=== PATIENT | male | born 1980 | race Caucasian/White ===

== ENCOUNTER 2019-01-27 20:39 | Inpatient (IN) ==
[2019-01-27] MEDS ORDERED: ACETAMINOPHEN 1,000 MG/100 ML VIAL IV STA (21:20)
[2019-01-27 21:27] LABS: Basophils # (auto) 0.08 K/uL (0-0.2); Basophils % (auto) 0.6 %; Eosinophils % (auto) 2.2 %; Hematocrit (blood only) 42.5 % (42-52); Hemoglobin 14.8 g/dL (14.0-18.0); Immature Granulocytes # (auto) 0.17 K/uL (0.00-0.02); Immature Granulocytes % (auto) 1.3 %; Lymphocytes # (auto) 3.81 K/uL (1.2-3.4); Lymphocytes % (auto) 28.5 %; Mean Corpuscular Hgb Conc 34.8 g/dL (32-36); Mean Corpuscular Volume 88.7 fL (80-100); Mean Platelet Volume 9.7 fL (7.4-10.4); Monocytes # (auto) 1.04 K/uL (0.11-0.59); Monocytes % (auto) 7.8 %; Neutrophils # (auto) 7.98 K/uL (1.4-6.5); Neutrophils % (auto) 59.6 %; Platelet Count 298 K/uL (130-400); RDW Coefficient of Variation 12.9 % (11.5-14.5); RDW Standard Deviation 42.2 fL (36.4-46.3); Red Blood Count 4.79 M/uL (4.7-6.1); White Blood Count 13.38 K/uL (4.8-10.8)
[2019-01-27] MEDS: SODIUM CHLORIDE 0.9% 1000ML 1,000 ML IV SCH ×2 (21:37→23:52)
[2019-01-27] MEDS ORDERED: PROCHLORPERAZINE 2 ML IV ONE (21:44)
[2019-01-27] MEDS ORDERED: FAMOTIDINE 20MG/5ML IV PUSH IV STA (21:44)
[2019-01-27] MEDS ORDERED: MoRPHine SULFATE 10 MG/ML CARP/VIAL IV STA ×2 (21:44→23:12)
[2019-01-27 21:54] LABS: Albumin Level 3.9 gm/dl (3.4-5.0); BUN Creatinine Ratio 19.1 (10-20); Calcium 9.3 mg/dl (8.5-10.1); Creatinine Clr Calc Pharmacy 140.8 ml/min; Est GFR (African American) 117.9; Est GFR (Non-African American) 101.7; Potassium 4.2 mmol/L (3.5-5.1)
[2019-01-27 21:58] LABS: Albumin Globulin Ratio 1.3 (0.9-2); Bilirubin,Total 0.3 mg/dl (0.2-1); Globulin 3.1 gm/dl (2.5-4.0)
--- NOTE | 2019-01-27 22:39 | Ultrasound Report ---
ULTRASOUND RIGHT UPPER QUADRANT ABDOMEN CLINICAL HISTORY: Right upper quadrant abdominal pain. COMPARISON STUDY: No priors. TECHNIQUE: Real-time, grayscale, and color flow sonography of the right upper quadrant of the abdomen was performed. Images are reviewed in the transverse and longitudinal planes. FINDINGS: Liver: The liver is top normal in size and demonstrates heterogeneously increased echotexture consist ent with hepatic steatosis. Fatty sparing is seen adjacent to gallbladder fossa. There is no intrahep atic biliary ductal dilatation. The main portal vein is patent. Gallbladder: There are shadowing calcified gallstones. There is no gallbladder wall thickening or per icholecystic fluid. A sonographic Parker's sign is reportedly absent. The common bile duct measures u p to 0.5 cm in diameter. Pancreas: Not well visualized due to overlying bowel gas. Right kidney: Survey images of the right kidney demonstrate normal size and echotexture. There is no hydronephrosis. Ascites: None. IMPRESSION: 1. Cholelithiasis without definitive sonographic evidence of acute cholecystitis. If there is strong clinical concern for acute cholecystitis consider hepatobiliary scan for further assessment. 2. Hepatic steatosis. Electronically signed by: Robel Rivera M.D. 01/27/2019 10:37 PM
[2019-01-27] MEDS ORDERED: cefTRIAXone SODIUM 2,000 MG in DEXTROSE 5% 50 ML IV STA (23:07)
[2019-01-27] MEDS ORDERED: SODIUM CHLORIDE 0.9% 1000ML 1,000 ML IV STA (23:12)
[2019-01-27] MEDS ORDERED: metroNIDAZOLE 500 MG/100 ML BAG IV STA (23:12)
--- NOTE | 2019-01-28 00:17 | Emergency Department Note ---
Entered by Dario Rubio acting as a scribe for Johnny Hall MD History of Present Illness General Chief complaint: Abdominal Pain Stated complaint: R SIDE STABBING PAIN Time Seen by Provider: 01/27/19 21:20 Source: patient History of Present Illness Provider complaint: Abdominal pain Onset (ago): hour(s) (Today) Location: abdomen and right (Upper) Radiation: non-radiation Pain Consistency: + constant Maximum Pain Intensity: 10 Current Pain Intensity: 10 Relieved By: + none Exacerbated By: + eating Associated symptoms: + nausea/vomiting and + shortness of breath The patient is a 38 year old male who presents to the Emergency Room with complaints of constant right upper quadrant abdominal pain and right side pain that started this afternoon. The patient rates the pain as a 10/10 and states it became a lot worse after eating pizza for dinner tonight. He also is nauseous and has vomited 3-4 times since his symptoms became worse. The patient also notes the pain is so severe that he feels short of breath. The patient has never had pain in this area before and he still has his gallbladder. Home Medications Home Medications Medication Instructions Recorded Confirmed Type multivitamin 1 tab PO DAILY 01/27/19 01/27/19 History Allergies Allergy/AdvReac Type Severity Reaction Status Date / Time No Known Allergies Allergy Verified 01/27/19 21:54 Past Med/Surg History Medical History Lumbar disc disease (Chronic) Family History Other No pertinent family history in first degree relatives Social History Feels Safe at Home: Yes Smoking Status: Never smoker Review of Systems See HPI for pertinent positives & negatives. and A total of 10 systems reviewed and were otherwise negative Physical Exam Vital Signs Vital Signs - 24 hr 01/27/19 20:44 01/27/19 22:38 Temperature 36.7 C Temperature Source Oral Sepsis Recent Fever Within 48 Hours No Sepsis Action Taken by Nursing No Action Required Pulse Rate 92 H Pulse Rate [Finger] 64 Respiratory Rate 18 20 Respiratory Effort / Characteristics Non-Labored Spontaneous Respiratory Depth Normal Blood Pressure 197/70 H Blood Pressure [Right Arm] 157/89 H Blood Pressure Mean 112 Blood Pressure Mean [Right Arm] 111 Pulse Oximetry 99 95 Oxygen Delivery Method Room Air Room Air GENERAL: Awake, alert, uncomfortable-appearing, in no distress HENT: Normocephalic, atraumatic. Oropharynx with dry mucous membranes and otherwise unremarkable. EYES: Normal conjunctiva. Sclera non-icteric. NECK: Supple. No nuchal rigidity. FROM. No JVD. RESPIRATORY: Clear to auscultation. CARDIAC: Regular rate, normal rhythm. Extremities warm and well perfused. Pulses equal. ABDOMEN: Soft, non-distended. Mild epigastric and RUQ ttp. Equivocal Parker's sign. No rebound or guarding. No masses. RECTAL: Deferred. MUSCULOSKELETAL: Chest examination reveals no tenderness. The back is symmetrical on inspection without obvious abnormality. There is no CVA tenderne ss to palpation. No joint edema. LOWER EXTREMITIES: Calves are equal size bilaterally and non-tender. No edema. No discoloration. NEURO: Normal sensorium. No sensory or motor deficits noted. SKIN: No rash or jaundice noted. Course 2141: The patient was evaluated in room B11, and a complete history and physical examination were performed. I also performed a bedside ultrasound of his right upper quadrant. 2244: I reevaluated the patient and he is still uncomfortable. 2310: I spoke to Dr. Salvatore Davis about the patient's case and he is going to accept him for further evaluation. Consultations Consultation #1: I spoke to Dr. Salvatore Davis about the patient's case and he is going to accept him for further evaluation. Time: 23:10 Administered Medications Discontinued Medications Famotidine (Pepcid 20mg Iv Push) 20 mg IV ONE STA Stop: 01/27/19 21:45 Last Admin: 01/27/19 22:02 Dose: 20 mg Documented by: [id number] Acetaminophen (Ofirmev) 1,000 mg in 100 mls @ 400 mls/hr IV NOW STA Stop: 01/27/19 21:34 Last Infusion: 01/27/19 23:22 Dose: 0 mls/hr Documented by: [id number] Admin: 01/27/19 21:37 Dose: 400 mls/hr Documented by: [id number] Sodium Chloride (Nss 1000ml) 1,000 mls @ 999 mls/hr IV .Q1H1M MILLI Stop: 01/27/19 23:30 Last Admin: 01/27/19 23:52 Dose: 999 mls/hr Documented by: [id number] Infusion: 01/27/19 22:38 Dose: 999 mls/hr Documented by: [id number] Admin: 01/27/19 21:37 Dose: 999 mls/hr Documented by: [id number] Prochlorperazine (Compazine) 2 mls @ 1 mls/min IV ONE ONE Stop: 01/27/19 21:45 Last Admin: 01/27/19 22:01 Dose: 1 mls/min Documented by: [id number] Metronidazole (Flagyl) 500 mg in 100 mls @ 100 mls/hr IV NOW STA Stop: 01/28/19 00:11 Last Admin: 01/27/19 23:28 Dose: 100 mls/hr Documented by: [id number] Morphine Sulfate (Morphine Sulfate) 10 mg IV NOW STA Stop: 01/27/19 21:45 Last Admin: 01/27/19 22:02 Dose: 10 mg Documented by: [id number] Morphine Sulfate (Morphine Sulfate) 12 mg IV NOW STA Stop: 01/27/19 23:13 Last Admin: 01/27/19 23:27 Dose: 12 mg Documented by: [id number] Medical Decision Making Differential Diagnosis Differential diagnoses includes but is not limited to gastritis, peptic ulcer disease, GERD, gallbladder disease, pancreatitis, small bowel obstruction, acute coronary syndrome, pericarditis, ischemic bowel, irritable bowel disease, ir ritable bowel syndrome, appendicitis, diverticulitis, malignancy, hernia, urinary tract infection, torsion, perforation, trauma, infectious. Medical Records Attestation: I reviewed the patient's medical records. Home Medications Current Medication List: was personally reviewed by me Laboratory Data Attestation: I reviewed the patient's lab results. Result diagrams: 01/27/19 21:07 01/27/19 21:07 Lab Results 01/27/19 01/27/19 Range/Units 21: 21:07 WBC 13.38 H (4.8-10.8) K/uL RBC 4.79 (4.7-6.1) M/uL Hgb 14.8 (14.0-18.0) g/dL Hct 42.5 (42-52) % MCV 88.7 (80-100) fL MCH 30.9 (25-34) pg MCHC 34.8 (32-36) g/dL RDW Std Deviation 42.2 (36.4-46.3) fL RDW Coeff of Amos 12.9 (11.5-14.5) % Plt Count 298 (130-400) K/uL MPV 9.7 (7.4-10.4) fL Immature Gran % (Auto) 1.3 % Neut % (Auto) 59.6 % Lymph % (Auto) 28.5 % [place] % (Auto) 7.8 % Eos % (Auto) 2.2 % Baso % (Auto) 0.6 % Immature Gran # (Auto) 0.17 H (0.00-0.02) K/uL Neut # (Auto) 7.98 H (1.4-6.5) K/uL Lymph # (Auto) 3.81 H (1.2-3.4) K/uL [place] # (Auto) 1.04 H (0.11-0.59) K/uL Eos # (Auto) 0.30 (0-0.5) K/uL Baso # (Auto) 0.08 (0-0.2) K/uL Sodium 142 (136-145) mmol/L Potassium 4.2 (3.5-5.1) mmol/L Chloride 108 H (98-107) mmol/L Carbon Dioxide 26 (21-32) mmol/L Anion Gap 8.0 (3-11) BUN 18 (7-18) mg/dl Creatinine 0.94 (0.6-1.4) mg/dl Est Cr Clr Drug Dosing 140.8 ml/min Est GFR ( Amer) 117.9 Est GFR (Non-Af Amer) 101.7 BUN/Creatinine Ratio 19.1 (10-20) Glucose 118 H (70-99) mg/dl Calcium 9.3 (8.5-10.1) mg/dl Total Bilirubin 0.3 (0.2-1) mg/dl AST 24 (15-37) U/L ALT 47 (12-78) U/L Alkaline Phosphatase 87 (45-117) U/L Total Protein 7.0 (6.4-8.2) gm/dl Albumin 3.9 (3.4-5.0) gm/dl Globulin 3.1 (2.5-4.0) gm/dl Albumin/Globulin Ratio 1.3 (0.9-2) Lipase 184 (73-393) U/L Imaging Data Radiologist's Impression: Radiology results as stated below per my review and the radiologist's interpretation: ULTRASOUND RIGHT UPPER QUADRANT ABDOMEN CLINICAL HISTORY: Right upper quadrant abdominal pain. COMPARISON STUDY: No priors. TECHNIQUE: Real-time, grayscale, and color flow sonography of the right upper quadrant of the abdomen was performed. Images are reviewed in the transverse and longitudinal planes. FINDINGS: Liver: The liver is top normal in size and demonstrates heterogeneously increased echotexture consistent with hepatic steatosis. Fatty sparing is seen adjacent to gallbladder fossa. There is no intrahepatic biliary ductal dilatation. The main portal vein is patent. Gallbladder: There are shadowing calcified gallstones. There is no gallbladder wall thickening or pericholecystic fluid. A sonographic Parker's sign is reportedly absent. The common bile duct measures up to 0.5 cm in diameter. Pancreas: Not well visualized due to overlying bowel gas. Right kidney: Survey images of the right kidney demonstrate normal size and echotexture. There is no hydronephrosis. Ascites: None. IMPRESSION: 1. Cholelithiasis without definitive sonographic evidence of acute cholecystitis. If there is strong clinical concern for acute cholecystitis consider hepatobiliary scan for further assessment. 2. Hepatic steatosis. Electronically signed by: Robel Rivera M.D. 01/27/2019 10:37 PM Blood Pressure Blood Pressure Findings: Elevated blood pressure Blood Pressure Disposition: further management by hospitalist DONALDO Narrative The patient is a pleasant 38-year-old gentleman who presents emergency department with acute onset right upper quadrant pain with associated nausea and vomiting per hpi. On arrival patient is uncomfortable but no acute distress, afebrile stable vital signs. Patient appears clinically dry. On exam he exhibits mild epigastric and RUQ ttp. Equivocal Parker's sign. WBC 3.3 with left shift and neutrophil predominance. Otherwise, chemistry without acidosis. LFTs unremarkable. Formal gallbladder ultrasound demonstrates cholelithiasis without evidence of cholecystitis and CBD of 0.5cm. Patient reevaluated and feeling some improvement after IV fluids, APAP, morphine. Though still uncomfortable appearing. The patient's discomfort with leukocytosis reasonable to admit the patient for further evaluation to exclude cholecystitis with HIDA scan. Will treat with ceftriaxone and Flagyl for now. Case discussed with Dr. Chase, [facility] hospitalist, who will evaluated the patient for admission and possible surgery/GI consultation. Impression & Plan Symptomatic cholelithiasis Discharge Plan Visit Data Chief Complaint: Abdominal Pain Stated Complaint: R SIDE STABBING PAIN ED Provider: Johnny Hall Discharge Problem: Symptomatic cholelithiasis Patient Disposition: Being Evaluated by Hospitalist Forms Stand Alone Forms: Call Back Authorization, My [facility] Prescriptions Prescriptions: No Action multivitamin Tablet,Chewable 1 tab PO DAILY RF: 0 Referrals Referrals: Osiel Corral MD [Primary Care Provider] - The scribe's documentation has been prepared under my direction and personally reviewed by me in its entirety. I confirm that the note above accurately reflects all work, treatment, procedures, and medical decision making performed by me.
[2019-01-28] MEDS ORDERED: HYDROmorphone INJ 0.5 MG/0.5 ML SYR IV PRN (01:09)
[2019-01-28] MEDS ORDERED: ONDANSETRON INJ 2 MG/ML 2 ML VIAL IV PRN ×2 (01:09→10:13)
[2019-01-28] MEDS ORDERED: ACETAMINOPHEN 325 MG TAB PO PRN (01:09)
[2019-01-28] MEDS: D5W AND NSS 1,000 ML IV SCH ×3 (01:30→16:47)
--- NOTE | 2019-01-28 01:43 | History and Physical Report ---
DATE OF ADMISSION: 01/28/2019 CHIEF COMPLAINT: Right upper quadrant abdominal pain. 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 He ate pizza. Initially thought of heartburn, but pain did not go away was very severe in nature, no radiation, does have some nausea, vomiting, no fever, but felt chills. In the ER ultrasound showing gallstones LAbs are fine. After pain medication, pain now has come down. Nausea is improved. Denies any headache. No blurred vision. No sore throat, no chest pain, no shortness of breath, no cough. Normal bowel and bladder movements. No swelling. Currently resting comfortably and hemodynamically stable. ALLERGIES: No known drug allergies. PAST MEDICAL HISTORY: As mentioned above. PAST SURGICAL HISTORY: None. MEDICATIONS: None. FAMILY HISTORY: Father has diabetes. Paternal grandfather has diabetes and heart disorder. SOCIAL HISTORY: No smoking, no alcohol, no drug use. . REVIEW OF SYMPTOMS: As per HPI. Rest of the review of symptoms are negative. PHYSICAL EXAMINATION: GENERAL: The patient is morbidly obese, not in acute distress. VITAL SIGNS: Temperature 36.7, pulse 64, respiratory rate 20, blood pressure 157/89, oxygen 96% on room air. HEENT: No pallor, no icterus. Pupils equal, round, and reactive to light. NECK: No JVD. No neck masses, no carotid bruit. CARDIOVASCULAR: S1, S2 heard. Regular rate and rhythm, no murmur, no gallop. RESPIRATORY SYSTEM: Normal AP diameter. No accessory muscle use. No wheezing, no crackles. ABDOMEN: Soft, bowel sounds present. Right upper quadrant tenderness present. Mild guarding present. No rigidity seen. No distention. CENTRAL NERVOUS SYSTEM: Cranial nerves II-XII grossly intact. Nonfocal. EXTREMITIES: No edema, no erythema. LABS: WBC 13.3, hemoglobin 14.8, hematocrit 42.5, platelets 298. Sodium 142, potassium 4.2, chloride 108, bicarbonate 26, BUN 18, creatinine 0.9, serum glucose 118, calcium 9.3, total bilirubin 0.3, AST 24, ALT 18, alkaline phosphatase is 64, lipase 184. Gallbladder ultrasound shows cholelithiasis without definitive sonographic evidence of acute processes. There is a strong clinical concern for acute cholecystitis,recommend HIDA scan, hepatic steatosis. ASSESSMENT AND PLAN: This 38-year-old male who presents with right upper quadrant pain found to be in mild distress. 1. Right upper quadrant abdominal pain after eating pizza. Gallstones on ultrasound. Mostly biliary colic. We will get a HIDA scan to rule out any cholecystitis. We will keep him n.p.o., IV fluids, IV antiemetics p.r.n., IV pain meds p.r.n. and empiric IV Unasyn and consult surgery in a.m. for further recommendations. 2. Deep venous thrombosis prophylaxis, sequential compression devices for now. 3. Disposition: Admit to medical floor. Expect to discharge home and follow with his family doctor. Level 1 full code. MTDD
[2019-01-28] MEDS: AMPICILLIN/SULBACTAM SOD 1,500 MG in 0.9 % SODIUM CHLORIDE 100 ML IV SCH ×4 (03:49→21:34)
[2019-01-28 05:33] LABS: Basophils # (auto) 0.02 K/uL (0-0.2); Basophils % (auto) 0.2 %; Eosinophils # (auto) 0.12 K/uL (0-0.5); Eosinophils % (auto) 0.9 %; Hematocrit (blood only) 37.4 % (42-52); Hemoglobin 12.5 g/dL (14.0-18.0); Immature Granulocytes # (auto) 0.09 K/uL (0.00-0.02); Immature Granulocytes % (auto) 0.7 %; Lymphocytes # (auto) 2.17 K/uL (1.2-3.4); Lymphocytes % (auto) 16.6 %; Mean Corpuscular Hgb Conc 33.4 g/dL (32-36); Mean Corpuscular Volume 90.3 fL (80-100); Mean Platelet Volume 9.4 fL (7.4-10.4); Monocytes % (auto) 8.4 %; Neutrophils % (auto) 73.2 %; Platelet Count 222 K/uL (130-400); RDW Coefficient of Variation 13.1 % (11.5-14.5); RDW Standard Deviation 43.3 fL (36.4-46.3); Red Blood Count 4.14 M/uL (4.7-6.1)
[2019-01-28 06:02] LABS: BUN Creatinine Ratio 17.4 (10-20); Calcium 8.3 mg/dl (8.5-10.1); Creatinine Clr Calc Pharmacy 151.4 ml/min; Est GFR (Non-African American) 108.7; Potassium 4.1 mmol/L (3.5-5.1)
[2019-01-28 06:21] LABS: Alanine Aminotransferase 40 U/L (12-78); Albumin Level 3.2 gm/dl (3.4-5.0); Alkaline Phosphatase 64 U/L (45-117); Aspartate Aminotransferase 18 U/L (15-37); Bilirubin Direct < 0.1 mg/dl (0-0.2); Bilirubin,Total 0.3 mg/dl (0.2-1); Magnesium 1.9 mg/dl (1.8-2.4)
[2019-01-28 07:02] LABS: Appearance Urine Clear (Clear); Bilirubin Urine Negative (Negative); Blood Urine Negative (Negative); Color Urine Yellow; Glucose Urine UA Negative (Negative); Ketones Urine Negative (Negative); Leukocyte Esterase Urine Negative (Negative); Nitrite Urine Negative (Negative); Protein Urine Negative (Negative); Specific Gravity Urine 1.036 (1.000-1.030); Urobilinogen Urine Negative (Negative)
[2019-01-28] MEDS ORDERED: MIDAZOLAM HCL 1 MG/ML 2ML VIAL ONE (09:33)
[2019-01-28] MEDS ORDERED: GLYCOPYRROLATE 0.2 MG/ML VIAL ONE (09:33)
[2019-01-28] MEDS ORDERED: LIDOCAINE HCL 2% 2 ML VIAL/AMP(20MG/ML) INFIL ONE (09:33)
[2019-01-28] MEDS ORDERED: DEXAMETHASONE SOD INJ 4 MG/ML VIAL ONE (09:33)
[2019-01-28] MEDS ORDERED: PROPOFOL IV EMULSION 10 MG/ML 20 ML VIAL IV ONE ×2 (09:33→10:44)
[2019-01-28] MEDS ORDERED: ROCURONIUM BROMIDE 10 MG/ML 5 ML VIAL ONE (09:33)
[2019-01-28] MEDS ORDERED: ONDANSETRON INJ 2 MG/ML 2 ML VIAL ONE (09:33)
[2019-01-28] MEDS ORDERED: fentaNYL citrate 100 MCG/2 ML VIAL ONE (09:33)
[2019-01-28] MEDS ORDERED: NEOSTIGMINE METHYLSULFATE 5 MG/5 ML SYR ONE (09:33)
--- NOTE | 2019-01-28 09:36 | Surgery Consultation ---
Date of Consultation January 28, 2019 Assessment & Plan (1) Symptomatic cholelithiasis: pt is a 38 years old male who was admitted to hospital for RUQ pain, U?S cholelithiasis. IMP: acute cholecystitis, cholelithiasis Plan, cancel HIDA scan I recommend to do laparoscopic cholecystectomy. possible open or cholangiogram, D/W benefits, risks and alternatives of the surgery, the risks - infection, bleeding, injury CBD, bowel, , pt understood, he agrees with the surgery, I answered all questions, History of Present Illness Attending Physician: CHIEF COMPLAINT: Right upper quadrant abdominal pain. 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 He ate pizza. Initially thought of heartburn, but pain did not go away was very severe in nature, no radiation, does have some nausea, vomiting, no fever, but felt chills. In the ER ultrasound showing gallstones LAbs are fine. After pain medication, pain now has come down. Nausea is improved. Denies any headache. No blurred vision. No sore throat, no chest pain, no shortness of breath, no cough. Normal bowel and bladder movements. No swelling. Currently resting comfortably and hemodynamically stable. I saw pt and reviewed pt's H/P with pt, pt is still have RUQ pain with nausea, no vomiting, Allergies Allergy/AdvReac Type Severity Reaction Status Date / Time No Known Allergies Allergy Verified 01/27/19 21:54 Home Medications Home Medications Medication Instructions Recorded Confirmed Type multivitamin 1 tab PO DAILY 01/27/19 01/27/19 History Patient History Medical History Lumbar disc disease (Chronic) Family History Other No pertinent family history in first degree relatives Social History Preferred Language: Latvian Communication Ability: Effective Beliefs That Will Affect Care: None Current Living Situation: Significant Other Other Information That Helps Us Care for You: No Feels Safe at Home: Yes Safety Concerns: Feels Safe At This Time Smoking Status: Never smoker Do You Dip or Chew Tobacco: No Second Hand Exposure: No Hx Alcohol Use: No Hx Substance Use: No Review of Systems Constitutional: as per Subjective / HPI Ear, Nose, Mouth, Throat: as per Subjective / HPI Respiratory: as per Subjective / HPI Cardiovascular: as per Subjective / HPI Gastrointestinal: as per Subjective / HPI Genitourinary: + as per Subjective / HPI Integumentary: as per Subjective / HPI Neurologic: as per Subjective / HPI Psychiatric: as per Subjective / HPI Endocrine: as per Subjective / HPI Hematologic / Lymphatic: as per Subjective / HPI Physical Exam Constitutional: WD/WN, vitals as above Neck: trachea midline, no thyromegaly Respiratory: normal respiratory effort, lungs clear to auscultation normal respiratory effort Cardiovascular: RRR, no murmur, no edema Rate/Rhythm: regular rate and regular rhythm Heart Sounds: normal S1 and normal S2 Gastrointestinal (Abdomen): Percussion/Palpation: + abdomen tender tenderness at RUQ , no rebound pain Neurologic: patellar DTR's 2+ bilat, sensation intact Psychiatric: A+Ox3, euthymic affect Results & Data Vital Signs (Past 12 Hours) Vital Signs Temp Pulse Pulse Pulse Resp BP Pulse Ox 01/28/19 07:51 36.8 C 68 11 L 123/76 99 01/28/19 01:17 36.8 C 68 18 163/97 H 99 01/28/19 00:46 69 18 161/94 H 99 01/27/19 22:38 64 20 157/89 H 95 Laboratory Results Abnormal lab results 01/27/19 01/27/19 01/28/19 Range/Units 21:07 21:07 05:18 WBC 13.38 H 13.10 H (4.8-10.8) K/uL RBC 4.14 L (4.7-6.1) M/uL Hgb 12.5 L (14.0-18.0) g/dL Hct 37.4 L (42-52) % Immature Gran # (Auto) 0.17 H 0.09 H (0.00-0.02) K/uL Neut # (Auto) 7.98 H 9.60 H (1.4-6.5) K/uL Lymph # (Auto) 3.81 H (1.2-3.4) K/uL [place] # (Auto) 1.04 H 1.10 H (0.11-0.59) K/uL Chloride 108 H (98-107) mmol/L Glucose 118 H (70-99) mg/dl Calcium (8.5-10.1) mg/dl Total Protein (6.4-8.2) gm/dl Albumin (3.4-5.0) gm/dl Ur Specific [place] (1.000-1.030) 01/28/19 01/28/19 01/28/19 Range/Units 05:18 05:18 06:58 WBC (4.8-10.8) K/uL RBC (4.7-6.1) M/uL Hgb (14.0-18.0) g/dL Hct (42-52) % Immature Gran # (Auto) (0.00-0.02) K/uL Neut # (Auto) (1.4-6.5) K/uL Lymph # (Auto) (1.2-3.4) K/uL [place] # (Auto) (0.11-0.59) K/uL Chloride 109 H (98-107) mmol/L Glucose 122 H (70-99) mg/dl Calcium 8.3 L (8.5-10.1) mg/dl Total Protein 6.0 L (6.4-8.2) gm/dl Albumin 3.2 L (3.4-5.0) gm/dl Ur Specific [place] 1.036 H (1.000-1.030) Diagnostic Findings ULTRASOUND RIGHT UPPER QUADRANT ABDOMEN CLINICAL HISTORY: Right upper quadrant abdominal pain. COMPARISON STUDY: No priors. TECHNIQUE: Real-time, grayscale, and color flow sonography of the right upper quadrant of the abdomen was performed. Images are reviewed in the transverse and longitudinal planes. FINDINGS: Liver: The liver is top normal in size and demonstrates heterogeneously increased echotexture consistent with hepatic steatosis. Fatty sparing is seen adjacent to gallbladder fossa. There is no intrahepatic biliary ductal dilatation. The main portal vein is patent. Gallbladder: There are shadowing calcified gallstones. There is no gallbladder wall thickening or pericholecystic fluid. A sonographic Parker's sign is reportedly absent. The common bile duct measures up to 0.5 cm in diameter. Pancreas: Not well visualized due to overlying bowel gas. Right kidney: Survey images of the right kidney demonstrate normal size and echotexture. There is no hydronephrosis. Ascites: None. IMPRESSION: 1. Cholelithiasis without definitive sonographic evidence of acute cholecystitis. If there is strong clinical concern for acute cholecystitis consider hepatobiliary scan for further assessment. 2. Hepatic steatosis.
[2019-01-28] MEDS ORDERED: BACITRACIN OINT 15 GM TUBE ONE (09:41)
[2019-01-28] MEDS ORDERED: BUPIVACAINE 0.5 % 5 MG/1 ML MPF 30ML VIAL ONE (09:42)
[2019-01-28] MEDS ORDERED: LIDOCAINE HCL 1% 20 ML VIAL ONE (09:42)
[2019-01-28] MEDS ORDERED: CONRAY 60% 50 ML VIAL ONE (09:42)
--- NOTE | 2019-01-28 10:08 | History & Physical Bridge Note ---
Date of Service January 28, 2019 History & Physical Bridge Note I have examined the patient, reviewed the History & Physical and in the interval since the performance of the History & Physical I have noted the following changes of clinical significance: no changes noted
[2019-01-28] MEDS ORDERED: ePHEDrine sulfate 50 MG/ML AMP IV PRN (10:13)
[2019-01-28] MEDS ORDERED: ATROPINE SULFATE 0.1 MG/ML 10ML SYR IV PRN (10:13)
[2019-01-28] MEDS ORDERED: HYDROmorphone INJ 2 MG/ML SYR/VIAL IV PRN (10:13)
[2019-01-28] MEDS ORDERED: fentaNYL citrate 100 MCG/2 ML VIAL IV PRN (10:13)
[2019-01-28] MEDS ORDERED: PROMETHAZINE HCL 6.25 MG in SODIUM CHLORIDE 0.9% 50 ML IV PRN (10:13)
--- NOTE | 2019-01-28 10:13 | Anesthesiology Consultation ---
Date of Service January 28, 2019 Assessment & Plan (1) Encounter for pre-operative examination: Chart Review Chart Review: Acceptable Risk for Surgery and Patient NOT seen in Pre Admission Testing Consults Requested none ASA ASA2 Proposed Anesthesia Anesthesia Type: General Risk / Benefits Reviewed With: PT / POA / Parent / Guardian, Accepts Plan and Informed Consent Obtained History Surgery Operation Date: 01/28/19 08:10 Proposed Procedures p Laparoscopic Cholecystectomy - Laisha Sr MD Height/Weight Height: 5 ft 9 in Weight: 128.7 kg Allergies Allergy/AdvReac Type Severity Reaction Status Date / Time No Known Allergies Allergy Verified 01/27/19 21:54 Medications Home Medications Medication Instructions Recorded Confirmed Last Taken multivitamin 1 tab PO DAILY 01/27/19 01/27/19 Unknown Active Medications Generic Name Dose Route Start Last Admin Trade Name Freq PRN Reason Stop Dose Admin Hydromorphone HCl 0.5 mg 01/28/19 01:09 01/28/19 02:23 Dilaudid IV 02/11/19 01:08 0.5 mg Q4H PRN Administration Pain Ampicillin Sodium/Sulbactam 104 mls @ 200 mls/hr 01/28/19 04:00 01/28/19 04:23 Sodium 1,500 mg/ Sodium IV 02/07/19 03:59 Infused Chloride Q6H MILLI Infusion Protocol Dextrose/Sodium Chloride 1,000 mls @ 125 mls/hr 01/28/19 01:09 01/28/19 09:49 D5w And Nss IV 02/27/19 01:08 Infused .Q8H MILLI Infusion NPO Date Last Intake of Fluids: 01/27/19 Time Last Intake of Fluids: 20:00 Date Last Intake of Solids: 01/27/19 Time Last Intake of Solids: 18:00 Past Medical History Medical History Lumbar disc disease (Chronic) Exercise / Class Metabolic Activity II 4-5 Yardwork/Stairs/Walk up hill Past Family History Family History Other No pertinent family history in first degree relatives Past Anesthesia History No Hx of Anesthesia Complications and No Family Hx of Anesthesia Complications History of PONV No Hx of PONV and No Hx of Motion Sickness Social History Smoking Status: Never smoker Do You Dip or Chew Tobacco: No Hx Alcohol Use: No Hx Substance Use: No Physical Exam Vital Signs Last Vital Signs Temp 36.9 C 01/28/19 09:42 Pulse 88 01/28/19 09:42 Resp 18 01/28/19 09:42 BP 146/83 H 01/28/19 09:42 Pulse Ox 96 01/28/19 09:42 ENMT Mouth: no dentition abnormality Thyromental Distance: > or= 3.5 Finger Breadths Mallampati Class: II Neck normal visual inspection Respiratory normal respiratory effort Auscultation: lungs clear to auscultation bilaterally Cardiovascular Rate/Rhythm: regular rate and regular rhythm Psychiatric Orientation: alert Testing Laboratory Results 01/28/19 05:18 01/28/19 05:18 Urine Color Yellow 01/28/19 06:58 Urine Appearance Clear (Clear) 01/28/19 06:58 Urine pH 5.0 (4.5-7.5) 01/28/19 06:58 Ur Specific [place] 1.036 (1.000-1.030) H 01/28/19 06:58 Urine Protein Negative (Negative) 01/28/19 06:58 Urine Glucose (UA) Negative (Negative) 01/28/19 06:58 Urine Ketones Negative (Negative) 01/28/19 06:58 Urine Nitrite Negative (Negative) 01/28/19 06:58 Ur Leukocyte Esterase Negative (Negative) 01/28/19 06:58
[2019-01-28] MEDS ORDERED: SUCCINYLCHOLINE CHLORIDE 20 MG/ML 10 ML VIAL ONE (10:33)
--- NOTE | 2019-01-28 11:26 | Post Operative Brief Note ---
Immediate Post Op Note v1 Date of Surgery January 28, 2019 Pre & Post Diagnosis Operation Date: 01/28/19 08:10 Pre-Op Diagnosis: acute Cholecystitis, cholelithiasis Post-Op Diagnosis: same Procedure Operation Date: 01/28/19 08:10 Actual Procedures p Laparoscopic Cholecystectomy(Not Applicable) - Laisha Sr MD Surgeon Laisha Sr MD Supervisor [employer] RACHAEL Brennan Estimated Blood Loss 20 Findings Consistent with Post-Op Diagnosis acute cholecystitis Fluids 1200ml Specimens gallbladder Anesthesia Type General Complications none Disposition Accompanied Patient To Recovery: Yes Disposition: Recovery Room Overlapping Procedure I was immediately available: during the entire case.
--- NOTE | 2019-01-28 12:25 | Anesthesiology Progress Note ---
Date of Service January 28, 2019 Anesthesia Post Procedure Vital Signs Vital Signs: Temp Pulse Pulse Pulse Pulse Resp BP 01/28/19 12:20 58 L 17 01/28/19 12:10 61 19 01/28/19 12:00 60 19 01/28/19 11:52 36.0 C L 63 19 01/28/19 09:42 36.9 C 88 18 01/28/19 07:51 36.8 C 68 11 L 01/28/19 01:17 36.8 C 68 18 01/28/19 00:46 69 18 01/27/19 22:38 64 20 01/27/19 20:44 36.7 C 92 H 18 197/70 H BP Pulse Ox 01/28/19 12:20 139/97 96 01/28/19 12:10 163/63 H 98 01/28/19 12:00 101/80 98 01/28/19 11:52 101/80 98 01/28/19 09:42 146/83 H 96 01/28/19 07:51 123/76 99 01/28/19 01:17 163/97 H 99 01/28/19 00:46 161/94 H 99 01/27/19 22:38 157/89 H 95 01/27/19 20:44 99 Pain Intensity Abdomen: Pain Intensity: 3 Transfer of Care Handoff Completed per policy Notes Mental Status: alert / awake / arousable Patient Amnestic to Procedure: Yes Nausea / Vomiting: adequately controlled Pain: adequately controlled Airway Patency, RR, SpO2: stable & adequate BP & HR: stable & adequate Hydration State: stable & adequate Anesthetic Complications: no major complications apparent
[2019-01-28] MEDS ORDERED: OXYCODONE/ACETAMINOPHEN 5mg/325mg TAB PO PRN (12:45)
--- NOTE | 2019-01-28 12:53 | Hospitalist Progress Note ---
Date of Service January 28, 2019 Assessment & Plan (1) Symptomatic cholelithiasis: (2) Lumbar disc disease: (3) Obesity (BMI 30.0-34.9): s/p Shabbir Sr DC tomorrow Resume Post Op Care per Surgery Protocol Incentive Spirometry 10x per Hour Resume Relative Home Meds Where Appropriate Transition from IV to PO Pain control DVT Prophylaxis Per Surgery Protocol Monitor Daily Labs Results & Data Vital Signs (Past 12 Hours) Vital Signs Temp Pulse Pulse Resp BP Pulse Ox 01/28/19 12:20 58 L 17 139/97 96 01/28/19 12:10 61 19 163/63 H 98 01/28/19 12:00 60 19 101/80 98 01/28/19 11:52 36.0 C L 63 19 101/80 98 01/28/19 09:42 36.9 C 88 18 146/83 H 96 01/28/19 07:51 36.8 C 68 11 L 123/76 99 01/28/19 01:17 36.8 C 68 18 163/97 H 99 Current Diagnoses Calculus of gallbladder without cholecystitis without obstruction (01/28/19) Encounter for other preprocedural examination (01/28/19) Allergies No Known Allergies Allergy (Verified 01/27/19 21:54) Height/Weight/Isolation Height 5 ft 9 in Weight 128.7 kg Chemistry 01/27/19 01/28/19 21:07 05:18 Sodium 142 141 Potassium 4.2 4.1 Chloride 108 H 109 H Carbon Dioxide 26 28 Anion Gap 8.0 4.0 BUN 18 15 Creatinine 0.94 0.87 Glucose 118 H 122 H Urinalysis 01/28/19 06:58 Urine Color Yellow Urine Appearance Clear Urine pH 5.0 Ur Specific [place] 1.036 H Urine Protein Negative Urine Glucose (UA) Negative Urine Ketones Negative Urine Blood Negative Urine Nitrite Negative Urine Bilirubin Negative
[2019-01-28] MEDS: FAMOTIDINE 20 MG in SYRINGE 3 ML IV SCH ×2 (13:07→21:34)
--- NOTE | 2019-01-28 19:46 | Operative Report ---
DATE OF OPERATION: 01/28/2019 PREOPERATIVE DIAGNOSES: Acute cholecystitis, cholelithiasis. POSTOPERATIVE DIAGNOSES: Acute cholecystitis, cholelithiasis. PROCEDURE: Laparoscopic cholecystectomy. SURGEON: Laisha Sr MD. SET UP OPERATOR TOOL: Yulisa Read PA-C. ANESTHESIA: General. ESTIMATED BLOOD LOSS: About 20 mL. FINDINGS: Acute cholecystitis. COMPLICATIONS: None. INDICATIONS FOR THE PROCEDURE: This is a 38-year-old gentleman who was admitted to the hospital for right upper quadrant pain and patient diagnosis of cholelithiasis. The patient required to do a laparoscopic cholecystectomy, possible open, possible cholangiogram. I did talk to the patient about the benefit, risk, alternate procedure. I indicated the risks may include but not limited such as bleeding, infection, injury to common bile duct, injury to the bowel, even . The patient understands. He signed informed consent and I answered all questions. DETAILS OF PROCEDURE: We brought the patient to the OR, put the patient in the supine position. The patient received SCD on bilateral legs to prevent DVT. Also, the patient received 1 gram of Unasyn IV for prophylactic antibiotic. The patient received general anesthesia without difficulty. The abdomen was prepped and draped in routine sterile fashion. After time out, I injected local anesthesia by using 1% lidocaine mixed with 0.5% Marcaine just above umbilicus, then made a small incision just above umbilicus, opened fascia and opened peritoneum under direct vision, put a Gennaro trocar in, connected to CO2 to create pneumoperitoneum. Flow rate at 6 liter per minute, pressure not more than 14 mmHg. Once we got a nice pneumoperitoneum then we put the camera in, looked around the abdomen showing normal finding on the liver. However, the gallbladder significant inflammation distention, confirmed diagnosis of acute cholecystitis. Then, we put another two 5 mm trocar on the right upper quadrant, one 11 trocar on the epigastric. Once all the trocars were in, we put a grasper in to hold the base of the gallbladder; however, based on the gallbladder's significant distention, we used a large needle to decompress the gallbladder first and we used a grasper to hold the base of the gallbladder, put a direction to the diaphragm and use another grasper to hold the pouch of the gallbladder, put latter to expose the triangle of Calot. The cystic duct was identified and mobilized. I put two 10 mm metal clip on the proximal cystic duct, one on the distal cystic duct. I then used a scissor for transection of cystic duct. Rechecked, no active bleeding, no bile leak. Then the cystic artery was identified. I put two 10 mm metal clip on the proximal cystic artery, one on the distal cystic artery. I used a scissor for transection of cystic artery, rechecked, no active bleeding. Then we took down the gallbladder from the liver bed by using the Bovie, rechecked, no active bleeding, no bile leak. Then we removed the gallbladder through the catch bag then we reinserted Gennaro trocar in, connected to CO2 to create pneumoperitoneum, again looked around the abdomen, showed no active bleeding, no bile leak from the liver bed. Then I removed all trocar under direct vision. No active bleeding from the trocar sites. Pneumoperitoneum was released. I closed the umbilical incision, fascial layer by using #1 Vicryl [id number] x2, closed subcutaneous layer by using 2-0 Vicryl interrupted and closed skin by using 4-0 continuous running, closed the epigastric incision by using 2-0 Vicryl in interrupted fashion and closed subcutaneous layer by using 2-0 Vicryl interrupted and closed skin by using 4-0 Vicryl interrupted, closed another two 5 mm trocar site skin only by using 4-0 Vicryl. Then we put the dressing on. The patient tolerated the procedure well. All instrument, needle and sponge count were correct x2 at the end of case. The patient was transferred to recovery room in stable condition. The specimen was sent to pathology. After procedure, I did talk to the patient and family member about the OR finding and procedure we did, they understand. I attest to the content of the Intraoperative Record and any orders documented therein. Any exception s are noted below.
[2019-01-29] MEDS: D5W AND NSS 1,000 ML IV SCH (00:51)
[2019-01-29] MEDS: AMPICILLIN/SULBACTAM SOD 1,500 MG in 0.9 % SODIUM CHLORIDE 100 ML IV SCH ×2 (04:25→09:46)
[2019-01-29] MEDS: OXYCODONE/ACETAMINOPHEN 5mg/325mg TAB PO PRN ×2 (04:27→09:51)
[2019-01-29 07:16] VITALS: BP 149/72; TEMP 97.9; O2SAT 96
[2019-01-29 08:30] LABS: Basophils # (auto) 0.01 K/uL (0-0.2); Basophils % (auto) 0.1 %; Eosinophils # (auto) 0.12 K/uL (0-0.5); Eosinophils % (auto) 0.9 %; Hematocrit (blood only) 39.1 % (42-52); Immature Granulocytes # (auto) 0.08 K/uL (0.00-0.02); Immature Granulocytes % (auto) 0.6 %; Lymphocytes # (auto) 2.92 K/uL (1.2-3.4); Mean Corpuscular Hgb Conc 33.2 g/dL (32-36); Mean Corpuscular Volume 90.5 fL (80-100); Mean Platelet Volume 9.8 fL (7.4-10.4); Monocytes % (auto) 8.6 %; Neutrophils # (auto) 9.58 K/uL (1.4-6.5); Neutrophils % (auto) 68.8 %; Platelet Count 233 K/uL (130-400); RDW Coefficient of Variation 13.3 % (11.5-14.5); RDW Standard Deviation 44.2 fL (36.4-46.3); Red Blood Count 4.32 M/uL (4.7-6.1); White Blood Count 13.91 K/uL (4.8-10.8)
[2019-01-29] MEDS: FAMOTIDINE 20 MG in SYRINGE 3 ML IV SCH (08:42)
[2019-01-29 08:57] LABS: Albumin Level 3.3 gm/dl (3.4-5.0); BUN Creatinine Ratio 14.1 (10-20); Calcium 8.7 mg/dl (8.5-10.1); Creatinine Clr Calc Pharmacy 156.8 ml/min; Est GFR (African American) 127.8; Est GFR (Non-African American) 110.3; Potassium 3.9 mmol/L (3.5-5.1)
[2019-01-29 09:00] LABS: Bilirubin,Total 0.5 mg/dl (0.2-1); Globulin 3.2 gm/dl (2.5-4.0); Total Protein 6.5 gm/dl (6.4-8.2)
[2019-01-29] MEDS ORDERED: MULTIVITAMIN TAB PO SCH (09:00)
--- NOTE | 2019-01-29 09:03 | Surgery Progress Note ---
Date of Service January 29, 2019 Assessment & Plan (1) Symptomatic cholelithiasis: POD # 1 s/p lap fly -vitals stable, afebrile - leukocytosis stable, lfts/tbili wnl - post op pain controlled - no n/v Plan: Okay from surgical standpoint for discharge discharge instructions reviewed FMLA paperwork filled out and returned to patient f/u surgical office in 2 weeks Rx for Percocet prn pain Dr. Sr has seen pt, agrees with above Subjective feeling good minimal pain, had Percocet which helped earlier pain at incision sites, preop pain resolved no n/v, tolerated regular diet last night passing gas ambulating hallway urinating without difficulty Review of Systems Review of Systems: All systems reviewed & are unremarkable except as noted in HPI & below Respiratory: no dyspnea Cardiovascular: no chest pain, no dyspnea and no lightheadedness Physical Exam Constitutional: + morbidly obese Respiratory: normal respiratory effort, lungs clear to auscultation no respiratory distress Cardiovascular: RRR, no murmur, no edema Gastrointestinal (Abdomen): Inspection/Auscultation: abdomen not distended Percussion/Palpation: abdomen soft; abdomen nontender, no guarding and abdomen not rigid Skin: no rashes, warm and dry + incision (Covered with dressings clean and dry) Psychiatric: A+Ox3, euthymic affect Results & Data Vital Signs (Past 12 Hours) Vital Signs Temp Pulse Pulse Resp BP Pulse Ox 01/29/19 07:13 36.6 C 56 L 16 149/72 H 96 01/29/19 03:58 36.9 C 72 19 125/67 95 01/28/19 23:46 37.0 C 66 19 133/73 95 Laboratory Results 01/29/19 01/29/19 Range/Units 08:06 08:06 WBC 13.91 H (4.8-10.8) K/uL RBC 4.32 L (4.7-6.1) M/uL Hgb 13.0 L (14.0-18.0) g/dL Hct 39.1 L (42-52) % MCV 90.5 (80-100) fL MCH 30.1 (25-34) pg MCHC 33.2 (32-36) g/dL RDW Std Deviation 44.2 (36.4-46.3) fL RDW Coeff of Amos 13.3 (11.5-14.5) % Plt Count 233 (130-400) K/uL MPV 9.8 (7.4-10.4) fL Immature Gran % (Auto) 0.6 % Neut % (Auto) 68.8 % Lymph % (Auto) 21.0 % [place] % (Auto) 8.6 % Eos % (Auto) 0.9 % Baso % (Auto) 0.1 % Immature Gran # (Auto) 0.08 H (0.00-0.02) K/uL Neut # (Auto) 9.58 H (1.4-6.5) K/uL Lymph # (Auto) 2.92 (1.2-3.4) K/uL [place] # (Auto) 1.20 H (0.11-0.59) K/uL Eos # (Auto) 0.12 (0-0.5) K/uL Baso # (Auto) 0.01 (0-0.2) K/uL Sodium 141 (136-145) mmol/L Potassium 3.9 (3.5-5.1) mmol/L Chloride 109 H (98-107) mmol/L Carbon Dioxide 24 (21-32) mmol/L Anion Gap 8.0 (3-11) BUN 12 (7-18) mg/dl Creatinine 0.84 (0.6-1.4) mg/dl Est Cr Clr Drug Dosing 156.8 ml/min Est GFR ( Amer) 127.8 Est GFR (Non-Af Amer) 110.3 BUN/Creatinine Ratio 14.1 (10-20) Glucose 104 H (70-99) mg/dl Calcium 8.7 (8.5-10.1) mg/dl Total Bilirubin 0.5 (0.2-1) mg/dl AST 30 (15-37) U/L ALT 75 (12-78) U/L Alkaline Phosphatase 64 (45-117) U/L Total Protein 6.5 (6.4-8.2) gm/dl Albumin 3.3 L (3.4-5.0) gm/dl Globulin 3.2 (2.5-4.0) gm/dl Albumin/Globulin Ratio 1.0 (0.9-2)
[2019-01-29 10:16] VITALS: PULSE 69
--- NOTE | 2019-01-29 11:25 | Discharge Summary ---
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 He ate pizza. Initially thought of heartburn, but pain did not go away was very severe in nature, no radiation, does have some nausea, vomiting, no fever, but felt chills. In the ER ultrasound showing gallstones. He went to OR 01/28 and had a lap Toshia c Dr Sr Admission Exam Per Admitting Provider PHYSICAL EXAMINATION: GENERAL: The patient is morbidly obese, not in acute distress. VITAL SIGNS: Temperature 36.7, pulse 64, respiratory rate 20, blood pressure 157/89, oxygen 96% on room air. HEENT: No pallor, no icterus. Pupils equal, round, and reactive to light. NECK: No JVD. No neck masses, no carotid bruit. CARDIOVASCULAR: S1, S2 heard. Regular rate and rhythm, no murmur, no gallop. RESPIRATORY SYSTEM: Normal AP diameter. No accessory muscle use. No wheezing, no crackles. ABDOMEN: Soft, bowel sounds present. Right upper quadrant tenderness present. Mild guarding present. No rigidity seen. No distention. CENTRAL NERVOUS SYSTEM: Cranial nerves II-XII grossly intact. Nonfocal. EXTREMITIES: No edema, no erythema. Principal Diagnosis Acute cholecystitis Discharge Exam ROS-No Headache, No Visual Changes, No Nausea, No Vomiting, No Fever, No Chills, No Neck Pain or Stiffness, No Chest Pain, No Palpitations, No SOB, No KILPATRICK, No Cough, No Sputum, No Wheezing, No Abdominal Pain, No Diarrhea, No Hematemesis, No Hemoptysis, No Unexpected Weight Loss, No Flank pain, No Melena, No Hematochezia, No Frequency, No Urgency, No Burning, No Hematuria, No Rashes, No Diaphoresis. Appetite is Normal Physical Exam Gen-AAO x 3, NAD, Afebrile Head-NCAT, EOMI, PERRLA, Anicteric Sclera, No Posterior Pharyngeal Erythema Neck-Supple, No JVD, No Thyromegaly, No Masses, No LAD, No Bruits Lungs-Clear to Auscultation Bilaterally, No Rales, No Rhonchi, No Wheezing, No Crepitus Chest-No S4, +S1, +S2, No S3, No Murmurs, No Rubs, No Gallops, No Ectopy Abdomen-Soft, Bowel Sounds Present, Non Tender, Non Distended, No Hepatomegaly, No Splenomegaly, No Palpable Masses, No Rebound, No Rigidity, No Guarding Musculoskeletal-Full Range of Motion Bilaterally, No CVAT Extremities-No Cyanosis, No Clubbing, No Edema Nuero-Cranial Nerves II-XII grossly intact, Motor WNL, DTRs WNL, Strength WNL, Non Focal Psych-Normal Mood Discharge Data Allergies Allergy/AdvReac Type Severity Reaction Status Date / Time No Known Allergies Allergy Verified 01/27/19 21:54 Consultations 01/27/19 23:07 ED Decision to Admit Stat 01/28/19 08:00 Consult General Surgery Routine Procedures Performed Operation Date: 01/28/19 08:10 Actual Procedures p Laparoscopic Cholecystectomy(Not Applicable) - Laisha Sr MD Ordered Studies 01/27/19 21:51 US gallbladder Stat Current Diagnoses Obesity, unspecified (01/28/19) Calculus of gallbladder without cholecystitis without obstruction (01/28/19) Unspecified thoracic, thoracolumbar and lumbosacral intervertebral disc disorder (01/28/19) Encounter for other preprocedural examination (01/28/19) Allergies No Known Allergies Allergy (Verified 01/27/19 21:54) Height/Weight/Isolation Height 5 ft 9 in Weight 128.7 kg Chemistry 01/27/19 01/28/19 01/29/19 21:07 05:18 08:06 Sodium 142 141 141 Potassium 4.2 4.1 3.9 Chloride 108 H 109 H 109 H Carbon Dioxide 26 28 24 Anion Gap 8.0 4.0 8.0 BUN 18 15 12 Creatinine 0.94 0.87 0.84 Glucose 118 H 122 H 104 H Urinalysis 01/28/19 06:58 Urine Color Yellow Urine Appearance Clear Urine pH 5.0 Ur Specific [place] 1.036 H Urine Protein Negative Urine Glucose (UA) Negative Urine Ketones Negative Urine Blood Negative Urine Nitrite Negative Urine Bilirubin Negative Hospital Course (1) Symptomatic cholelithiasis: (2) Lumbar disc disease: (3) Obesity (BMI 30.0-34.9): s/p Shabbir Toshia Dr Sr 5/6 DC today Total Time Total Time Spent Total Time Spent (In Minutes): 40 mins Total Time Includes: Examination of the Patient, Discharge Planning, Medication Reconciliation and Communication With Other Providers Discharge Plan Discharge Items Patient Disposition: Home - Self-Care Reason For Visit: ABDOMINAL PAIN Discharge Diagnosis: Acute Cholecystitis (inflammation of gallbladder) Condition: Good Discharge Goals: Decrease discomfort Activity: Resume your previous activity Lifting: None Bathing: No limitations Sexual Activity: Wait until after follow-up appointment Exercise/Sports: Wait until after follow-up appointment Driving/Machine Use: No limitations Weightbearing: Left weightbearing and Right weightbearing Non-emergency contact: Surgeon Follow-up/Referrals: Osiel Corral MD [Primary Care Provider] - (As needed, follow up with surgeon) Laisha Sr MD [Physician] - (As Directed) Diet: Low Fat Addtl Provider Instructions: Surgical discharge instructions: - No heavy lifting over 25 pounds for 4 weeks - No strenuous activity until cleared by surgeon - No submerging incisions underwater for 2 weeks (no bathing, swimming, or hot tubs) - No driving while taking narcotic pain medication or while you are still having pain - You may shower in 3 days. Sponge bath and wash hair in meantime. After 3 days, remove outer dressings and shower. Leave steri strips on incisions for 7 days and then remove. - Walking and light activity is encouraged daily to prevent blood clots from forming in your legs - You will be given prescription for narcotic pain medication (Percocet) as needed for moderate to severe pain - You may take extra strength Tylenol or Ibuprofen as needed for mild pain - To avoid constipation: drink plenty of fluids daily, daily walking, avoid foods that constipate, may take OTC stool softener (Colace) daily or twice a day while taking pain medication. If those measures do not work, you may take Miralax or Milk of Magnesia. - Follow-up in surgical office in 1-2 weeks, please call office at [phone] to make an appointment. Prescriptions: New acetaminophen [8 Hour Pain Reliever] 650 mg tablet extended release 650 mg PO Q8H PRN (Reason: fever or pain) Qty: 90 RF: 0 oxycodone-acetaminophen [Percocet] 5-325 mg Tablet 1 tab PO Q4H PRN (Reason: pain) Qty: 30 RF: 0 ibuprofen 400 mg tablet 400 mg PO Q4H PRN (Reason: fever or pain) Qty: 90 RF: 0 Continued multivitamin Tablet,Chewable 1 tab PO DAILY RF: 0 Stand-Alone Forms: [facility]io[facility] Pain Management, Work/School Release (Inpt), Call Back Authorization, [facility] Discharge Orders: Discharge Order (Routine); Ordered 01/29/19 Ordered By: Chong Bui Admission Data Admit Date/Time: 01/28/19 00:34 Attending Provider: Chong Bui Admit Provider: Victorino Chase Primary Care Provider: Osiel Corral Other Providers: Victorino Chase ; Francisco Ba ; Carmina Tao ; So Lujan ; Isaías Garcia ; Ben Harley ; Opal Luciano ; Miles Rodriguez ; Jordin Sam ; Luh Xavier ; Antony Herron ; Yulisa Read ; Dario Mcgraw Jr ; Laisha rS ; Mariaelena Rodriguez Service: Surgical Services Other Interventions: Discharge Summary Assessment (RN) Last Done: 01/29/19 10:14 Pending Studies at Discharge: Yes (Gallbladder pathology, will be reviewed at follow up visit)
[2019-01-29] MEDS ORDERED: FAMOTIDINE 20 MG TAB PO SCH (21:00)
== END 2019-01-29 12:31 | disposition home or self-care (01) | DRG 419 ==
LOC: ED 20:39 → 3N 01-28 00:34